=== PATIENT | female | born 1985 | race Two or more races ===

== ENCOUNTER 2017-03-27 06:27 | Inpatient (IN) | payer SELFPAY ==
[2017-03-27] MEDS ORDERED: LIDOCAINE 1% PF 30 ML VIAL. INJ (07:15)
[2017-03-27] MEDS ORDERED: OXYTOCIN 30 UNIT/500 ML PREMIX 500 ML IV ×2 (07:15→14:00)
[2017-03-27] MEDS ORDERED: IBUPROFEN 600 MG TABLET. PO (07:15)
[2017-03-27] MEDS ORDERED: CITRIC ACID/SODIUM CITRATE 30 ML SOLUTION. PO (07:15)
[2017-03-27] MEDS ORDERED: BUTORPHANOL 2 MG/ML VIAL. IV ×2 (07:15)
[2017-03-27] MEDS ORDERED: MAG HYDROX/ALUMINUM HYD/SIMETH 30 ML ORAL.SUSP PO ×2 (07:15→14:00)
[2017-03-27] MEDS ORDERED: 0.9 % SODIUM CHLORIDE 10 ML DISP.SYRIN. IV ×2 (07:15→14:00)
[2017-03-27] MEDS ORDERED: fentaNYL PF VIAL 100 MCG/2 ML VIAL IV ×2 (07:15)
[2017-03-27] MEDS ORDERED: TERBUTALINE 1 MG/ML VIAL. SQ (07:15)
[2017-03-27 07:54] LABS: POC GLUCOSE 90 mg/dL (70-99)
[2017-03-27 07:56] LABS: ADD MAN DIFF? NO
[2017-03-27 08:08] LABS: BASO % 1 % (0-3); EOS # 0.1 x10^3/uL (0.0-0.7); EOS % 1 % (0-3); HEMATOCRIT 37.9 % (36.0-47.0); HEMOGLOBIN 12.6 g/dL (12.0-15.5); LYMPH # 2.1 x10^3/uL (1.0-4.8); LYMPH % 31 % (24-48); MEAN CORPUSCULAR HEMOGLOBIN 26 pg (25-35); MEAN CORPUSCULAR HGB CONC 33 g/dL (31-37); MEAN CORPUSCULAR VOLUME 79 fL (79-100); MONO # 0.5 x10^3/uL (0.0-1.1); MONO % 7 % (0-9); NEUT # 4.1 x10^3uL (1.8-7.7); NEUT % 61 % (31-73); PLATELET COUNT 224 x10^3/uL (140-400); RED BLOOD COUNT 4.82 x10^6/uL (3.50-5.40); RED CELL DISTRIBUTION WIDTH 14.4 % (11.5-14.5); WHITE BLOOD COUNT 6.8 x10^3/uL (4.0-11.0)
[2017-03-27] MEDS: IV RINGERS,LACTATED 1000ML 1,000 ML IV ×6 (08:18→23:09)
[2017-03-27] MEDS: OXYTOCIN 30 UNIT/500 ML PREMIX 500 ML IV (08:24)
[2017-03-27] MEDS ORDERED: MORPHINE PF 5 MG/10 ML VIAL. (12:16)
[2017-03-27] MEDS ORDERED: fentaNYL PF VIAL 100 MCG/2 ML VIAL (12:16)
[2017-03-27] MEDS ORDERED: ONDANSETRON PF 4 MG/2 ML VIAL. (12:18)
[2017-03-27] MEDS ORDERED: ePHEDrine PF IN SALINE 50 MG/5 ML DISP.SYRIN IV (12:20)
[2017-03-27] MEDS: CITRIC ACID/SODIUM CITRATE 30 ML SOLUTION. PO (12:20)
[2017-03-27] MEDS ORDERED: ceFAZolin SODIUM 1 GM in IV DEXTROSE 5% 50 ML IV (14:00)
[2017-03-27] MEDS ORDERED: ONDANSETRON PF 4 MG/2 ML VIAL. IV (14:00)
[2017-03-27] MEDS ORDERED: ZOLPIDEM 5 MG TABLET. PO (14:00)
[2017-03-27] MEDS ORDERED: MMR per PROTOCOL. MC (14:00)
[2017-03-27] MEDS ORDERED: diphenhydrAMINE ORAL ELIXIR 12.5 MG/5 ML ML PO (14:00)
[2017-03-27] MEDS: IBUPROFEN 800 MG TABLET. PO ×2 (14:00→22:00)
[2017-03-27] MEDS: KETOROLAC 30 MG/ML INJ. IV (16:06)
[2017-03-27] MEDS: FERROUS SULFATE 325 MG TABLET. PO (17:00)
[2017-03-27] MEDS: ceFAZolin SODIUM IV Push 1 GM VIAL. IVP (23:24)
[2017-03-28] MEDS: DOCUSATE SODIUM 100 MG CAPSULE. PO ×2 (04:20→16:53)
[2017-03-28] MEDS: IBUPROFEN 800 MG TABLET. PO ×3 (04:20→23:08)
[2017-03-28 04:21] LABS: RPR Non Reactive (Non Reactive)
[2017-03-28] MEDS: ceFAZolin SODIUM IV Push 1 GM VIAL. IVP ×2 (04:21→12:19)
[2017-03-28 05:49] LABS: ADD MAN DIFF? NO
[2017-03-28 06:09] LABS: BASO % 0 % (0-3); EOS # 0.1 x10^3/uL (0.0-0.7); EOS % 1 % (0-3); HEMATOCRIT 33.5 % (36.0-47.0); HEMOGLOBIN 11.2 g/dL (12.0-15.5); LYMPH # 2.5 x10^3/uL (1.0-4.8); LYMPH % 28 % (24-48); MEAN CORPUSCULAR HEMOGLOBIN 26 pg (25-35); MEAN CORPUSCULAR HGB CONC 33 g/dL (31-37); MEAN CORPUSCULAR VOLUME 78 fL (79-100); MONO # 0.7 x10^3/uL (0.0-1.1); MONO % 8 % (0-9); NEUT # 5.6 x10^3uL (1.8-7.7); NEUT % 62 % (31-73); PLATELET COUNT 189 x10^3/uL (140-400); RED BLOOD COUNT 4.33 x10^6/uL (3.50-5.40); RED CELL DISTRIBUTION WIDTH 14.6 % (11.5-14.5)
[2017-03-28] MEDS: IV RINGERS,LACTATED 1000ML 1,000 ML IV ×4 (07:00→15:09)
[2017-03-28] MEDS: oxyCODONE/APAP 5/325 1 TAB TABLET PO ×2 (11:27→18:11)
[2017-03-29] MEDS: oxyCODONE/APAP 5/325 1 TAB TABLET PO ×3 (05:53→18:31)
[2017-03-29] MEDS: DOCUSATE SODIUM 100 MG CAPSULE. PO (08:08)
[2017-03-29] MEDS: IBUPROFEN 800 MG TABLET. PO ×3 (08:09→22:00)
[2017-03-30] MEDS: oxyCODONE/APAP 5/325 1 TAB TABLET PO ×3 (00:06→11:22)
[2017-03-30] MEDS: DOCUSATE SODIUM 100 MG CAPSULE. PO ×2 (06:24→07:21)
[2017-03-30] MEDS: IBUPROFEN 800 MG TABLET. PO (06:24)
[2017-03-30] MEDS: SIMETHICONE 80 MG TAB.CHEW PO (09:52)
[2017-03-30] MEDS: MAGNESIUM HYDROXIDE 2,400 MG/30 ML ORAL.SUSP. PO (09:52)
== END 2017-03-30 15:04 | disposition home or self-care (01) | DRG 766 ==
LOC: 3 SO LND 06:27 → 3 NORTH 17:10
PROC: 10D00Z1 Extraction of Products of Conception, Low, Open Approach (ICD-10-PCS; principal; 2017-03-27)
DX: O32.1XX0 Maternal care for breech presentation, not applicable or unspecified (principal); Z37.0 Single live birth; Z3A.00 Weeks of gestation of pregnancy not specified
CPT/HCPCS: 36415; 82962; 85025; 86593; 86850; 86900; 86901; G0378; J0690; J1885; J2270; J2405; J2590; J3010; J7120